=== PATIENT | male | born 1990 | race Caucasian/White ===

== ENCOUNTER 2018-06-26 10:46 | Emergency (ER) | payer MEDICAID ==
[~2018-06-26] VITALS: Ht 180.3 cm; Wt 90.9 kg
[2018-06-26] MEDS ORDERED: CLEO300C2 PO (11:57)
[2018-06-26] MEDS ORDERED: NORCOTAB PO (11:58)
[2018-06-26 12:06] VITALS: BP 142/76
== END 2018-06-26 12:09 | disposition home or self-care (01) ==
LOC: M ED 10:46
DX: K04.7 Periapical abscess without sinus (principal); F17.210 Nicotine dependence, cigarettes, uncomplicated

== ENCOUNTER 2018-06-28 17:04 | Emergency (ER) | payer MEDICAID ==
[~2018-06-28] VITALS: Ht 180.3 cm; Wt 91.0 kg
[~2018-06-28 17:04] MED LIST: CLEO300C2 PO; NORCOTAB PO
[2018-06-28 17:16] VITALS: BP 142/86
[2018-06-28] MEDS ORDERED: KETO10TAB PO (17:34)
[2018-06-28] MEDS ORDERED: LIDO1SOL7 PO (17:34)
== END 2018-06-28 17:50 | disposition home or self-care (01) ==
LOC: M ED 17:04
DX: S02.5XXA Fracture of tooth (traumatic), initial encounter for closed fracture (principal); K02.9 Dental caries, unspecified; X58.XXXA Exposure to other specified factors, initial encounter; Y92.89 Other specified places as the place of occurrence of the external cause; F17.210 Nicotine dependence, cigarettes, uncomplicated

== ENCOUNTER → 2018-12-27 | Outpatient (REF) | payer BC ==
[~2018-12-27] MED LIST changes: +HYDR-3715 PO; +KETO10TAB PO; +LIDO1SOL8 PO; -NORCOTAB PO
[2018-12-27 16:30] LABS: ALBUMIN 4.1 GM/DL (3.2-5.2); ALT/SGPT 32 U/L (12-78); BILIRUBIN,TOTAL 0.4 MG/DL (0.2-1.0); BLOOD UREA NITROGEN 15 MG/DL (7-18); CALCIUM LEVEL 9.4 MG/DL (8.5-10.1); CARBON DIOXIDE LEVEL 30 MEQ/L (21-32); CHLORIDE LEVEL 108 MEQ/L (98-107); CREATININE FOR GFR 1.17 MG/DL (0.70-1.30); GLOMERULAR FILTRATION RATE > 60.0 (>60); GLUCOSE, FASTING 89 MG/DL (70-100); POTASSIUM SERUM 4.6 MEQ/L (3.5-5.1); SODIUM LEVEL 143 MEQ/L (136-145); TOTAL PROTEIN 7.1 GM/DL (6.4-8.2)
[2018-12-27 16:49] LABS: HEMATOCRIT 44.1 % (42.0-52.0); HEMOGLOBIN 14.8 g/dl (13.5-17.5); MEAN CORPUSCULAR HEMOGLOBIN 30.1 pg (27.0-33.0); MEAN CORPUSCULAR HGB CONC 33.6 g/dl (32.0-36.5); MEAN CORPUSCULAR VOLUME 89.8 fl (80.0-96.0); PLATELET COUNT, AUTOMATED 218 10^3/uL (150-450); RED BLOOD COUNT 4.91 10^6/uL (4.30-6.10); WHITE BLOOD COUNT 7.4 10^3/uL (4.0-10.0)
== END ==
LOC: M SFHCPLAZ 15:14
PROVIDERS: ATTEND Nurse Practitioner Family
DX: F41.9 Anxiety disorder, unspecified (principal)

== ENCOUNTER 2019-02-15 04:15 | Emergency (ER) | payer BC ==
[~2019-02-15] VITALS: Ht 180.3 cm; Wt 88.6 kg
[2019-02-15 04:16] VITALS: BP 154/81
[2019-02-15] MEDS ORDERED: AUGM875T28 PO (04:50)
[2019-02-15] MEDS ORDERED: KETOROLAC 60 MG/2 ML VIAL (J1885) IM ONE (05:00)
[2019-02-15] MEDS ORDERED: AUGMENTIN 875 MG TAB PO ONE (05:00)
== END 2019-02-15 05:02 | disposition home or self-care (01) ==
LOC: M ED 04:15
DX: K04.7 Periapical abscess without sinus (principal); Z72.0 Tobacco use
CPT/HCPCS: 96372; 99283; J1885

== ENCOUNTER 2019-12-31 11:33 | Inpatient (IN) | payer BC, SELFPAY ==
[~2019-12-31] VITALS: Ht 180.3 cm; Wt 94.6 kg
[~2019-12-31 11:33] MED LIST changes: +AUGM875T28 PO; -LIDO1SOL8 PO; +LIDO2SOL17 PO
[2019-12-31 12:12] LABS: HEMATOCRIT 46.1 % (42.0-52.0); HEMOGLOBIN 15.9 g/dl (13.5-17.5); MEAN CORPUSCULAR HEMOGLOBIN 30.5 pg (27.0-33.0); MEAN CORPUSCULAR HGB CONC 34.5 g/dl (32.0-36.5); MEAN CORPUSCULAR VOLUME 88.5 fl (80.0-96.0); PLATELET COUNT, AUTOMATED 224 10^3/uL (150-450); RED BLOOD COUNT 5.21 10^6/uL (4.30-6.10)
[2019-12-31 12:57] LABS: ACETAMINOPHEN LEVEL < 2.0 UG/ML (10.0-30.0); ALBUMIN 4.1 GM/DL (3.2-5.2); ALT/SGPT 37 U/L (12-78); BILIRUBIN,DIRECT 0.2 MG/DL (0.0-0.2); BILIRUBIN,TOTAL 0.7 MG/DL (0.2-1.0); BLOOD UREA NITROGEN 10 MG/DL (7-18); CALCIUM LEVEL 9.3 MG/DL (8.5-10.1); CARBON DIOXIDE LEVEL 25 MEQ/L (21-32); CHLORIDE LEVEL 109 MEQ/L (98-107); CREATININE FOR GFR 1.03 MG/DL (0.70-1.30); ETHYL ALCOHOL (ETHANOL) < 0.003 % (0.000-0.010); GLOMERULAR FILTRATION RATE > 60.0 (>60); GLUCOSE, FASTING 96 MG/DL (70-100); POTASSIUM SERUM 3.8 MEQ/L (3.5-5.1); SALICYLATE LEVEL 2.1 MG/DL (5.0-30.0); SODIUM LEVEL 141 MEQ/L (136-145); THYROID STIMULATING HORMONE 0.765 uIU/ML (0.358-3.740); TOTAL PROTEIN 7.3 GM/DL (6.4-8.2)
[2019-12-31 14:43] LABS: AMPHETAMINES LEVEL URINE NEGATIVE (NEGATIVE); BARBITURATES URINE NEGATIVE (NEGATIVE); BENZODIAZEPINES URINE NEGATIVE (NEGATIVE); CANNABINOIDS URINE POSITIVE (NEGATIVE); COCAINE METABOLITE URINE NEGATIVE (NEGATIVE); METHADONE URINE NEGATIVE (NEGATIVE); OPIATES URINE NEGATIVE (NEGATIVE); PHENCYCLIDINE URINE NEGATIVE (NEGATIVE)
[2019-12-31] MEDS ORDERED: NICOTINE 21MG/24HR 1 EA TRANSDERMAL TD ONE (16:15)
[2019-12-31] MEDS ORDERED: CALCIUM CARBONATE 500 MG CHEW U/D PO STA (17:57)
[2019-12-31] MEDS ORDERED: MOM 30ML SUSPENSION UDC PO PRN (19:15)
[2019-12-31] MEDS ORDERED: MAALOX 30 ML SUSP *UDC PO PRN (19:15)
[2019-12-31] MEDS ORDERED: ACETAMINOPHEN TAB 650MG DOSE (2X325MG) PO PRN (19:15)
[2019-12-31] MEDS ORDERED: traZODone 50 MG TAB PO PRN (19:15)
[2020-01-01 02:27] VITALS: BP 147/91
--- NOTE | 2020-01-01 09:28 | MHHPEPDOC ---
[facility] History & Physical History and Physical DATE OF ADMISSION: Dec 31, 2019 at 19:03 HPI: Victoriano presents today for concerns regarding his suicidal ideation. He explains that about a year ago he was put on Effexor and he did not react well to it. This caused his suicidal ideation to turn into actions. Victoriano has been going downhill since then. He also does not see the point of working for 26 days just to see someone he loves for 4 days. Victoriano also admits to being fired at the beginning of October after getting a drug test and failing because of smoking marijuana. He has been in contact with his ex-girlfriend. Victoriano admits that she is not supportive of him. Victoriano admits to having many people in his life not be there for him and not supporting him when they said they would. He admits to his ex- and family encouraging him to go to a mental hospital. He admits to not liking hospitals in general. Victoriano denies hearing voices telling him what to do, he does hear voices calling his name sometimes. MEDICATIONS: Victoriano was also prescribed anti-anxiety medication, and he did not react well to them. His primary care provider then suggested he go seek behavioral health help. Objective Appearance: Well nourished. Well groomed. Behavior: Engaged. Cooperative with good eye contact. Pleasant. Mood: Dysthymic. Generally good. Appropriately reactive. Thought Content: No thoughts of self harm. No evidence of aggressive or homicidal ideation. Reports suicidal thoughts. No evidence of delusions. Judgement: intact as evidenced by decision making in the recent past. Insight: good insight into symptoms and treatment options. 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 The risks, benefits as well as common side effects as well as alternative treatments (including non-treatment) were discussed with the patient both in general and for their particular case. The patient selected this option out of a range. His treatment priorities are 1. Risk for suicide 2. Ineffective coping, and 3. Substance use. Estimated length of stay is anywhere between 3-5 days. Vital Signs Vital Signs Date Time Temp Pulse Resp B/P (MAP) Pulse Ox O2 Delivery O2 Flow Rate FiO2 7/13/20 02:27 98.7 70 18 147/91 (109) 97 Room Air Laboratory Data 24H Labs Laboratory Tests 2 12/31/19 11:49: Nucleated Red Blood Cells % (auto) 0.0, Anion Gap 7L, Glomerular Filtration Rate > 60.0, Calcium Level 9.3, Total Bilirubin 0.7, Direct Bilirubin 0.2, Aspartate Amino Transf (AST/SGOT) 42H, Alanine Aminotransferase (ALT/SGPT) 37, Alkaline Phosphatase 81, Total Protein 7.3, Albumin 4.1, Albumin/Globulin Ratio 1.3, Thyroid Stimulating Hormone (TSH) 0.765, Salicylates Level 2.1L, Urine Opiates Screen NEGATIVE, Urine Methadone Screen NEGATIVE, Acetaminophen Level < 2.0L, Urine Barbiturates Screen NEGATIVE, Urine Phencyclidine Screen NEGATIVE, Urine Amphetamines Screen NEGATIVE, Urine Benzodiazepines Screen NEGATIVE, Urine Cocaine Metabolite Screen NEGATIVE, Urine Cannabinoids Screen POSITIVEH, Ethyl Alcohol Level < 0.003 CBC/BMP Laboratory Tests 12/31/19 11:49 Medications No Active Prescriptions or Reported Meds Allergies Coded Allergies: No Known Allergies (Unverified , 06/28/18) TOMAS SEPULVEDA DO Jan 01, 2020 09:28
[2020-01-01] MEDS ORDERED: LORazepam 2 MG TAB PO PRN (10:30)
[2020-01-01] MEDS: FOLIC ACID 1 MG TAB PO SCH (10:46)
[2020-01-01] MEDS: NICOTINE 21MG/24HR 1 EA TRANSDERMAL TD PRN (10:46)
[2020-01-01] MEDS: MULTIVITAMINS/MINERALS THERAP 1 TAB PO SCH (10:46)
[2020-01-01] MEDS: THIAMINE 100 MG TAB PO SCH ×2 (10:46→20:15)
[2020-01-01 10:54] VITALS: BP 150/80
[2020-01-01] MEDS ORDERED: SERTRALINE HCL 25 MG TABLET PO ONE (11:00)
[2020-01-01 15:59] VITALS: BP 167/72
--- NOTE | 2020-01-01 18:54 | HPEPDOC ---
General Date of Admission Dec 31, 2019 at 19:03 Date of Service: Jan 01, 2020 Chief Complaint The patient is a 29-year-old male admitted with a reason for visit of Unspecified Depressive Disorder. Source: Patient Exam Limitations: No limitations Timing/Duration: Day(s) Severity: Moderate History of Present Illness Patient is 29 years old male with past history of hypertension, depression presented hospital with suicidal ideation. Patient stated that he has been diagnosed with hypertension however he didn't take any medications. During my interview patient denied fever, chills, nausea, chest pain, palpitations vomiting, diarrhea or dysuria Home Medications No Active Prescriptions or Reported Meds Allergies Coded Allergies: No Known Allergies (Unverified , 06/28/18) Past Medical History Medical History Hypertension, depression Family History Father has obesity, heart attack, coronary artery diseases Mom has hypertension Social History * Smoker: current smoker, greater than 1 pack/day Drugs: cocaine, other (amphetamines, opioids) A-FIB/CHADSVASC A-FIB History Current/History of A-Fib/PAF?: No Current PO Anticoag Therapy: No Review of Systems Constitutional: Denies: Chills, Fever Eyes: Denies: Pain ENT: Denies: Head Aches Skin: Denies: Rash, Lesions Pulmonary: Denies: Dyspnea Cardiovascular: Denies: Chest Pain Gastrointestinal: Denies: Nausea, Vomiting Genitourinary: Denies: Dysuria Hematologic: Denies: Bruising, Bleeding Excessively Musculoskeletal: Denies: Neck Pain Neurological: Denies: Weakness, Numbness Psych: Reports: Depression Physical Examination General Exam: Positive: Alert, Cooperative Eye Exam: Positive: PERRLA ENT Exam: Positive: Atraumatic Neck Exam: Positive: Supple; Negative: JVD Chest Exam: Positive: Clear to auscultation Heart Exam: Positive: Rate Normal Telemetry: Positive: No significant arrhythmia Abdomen Exam: Positive: Normal bowel sounds Extremity Exam: Negative: Clubbing, Cyanosis Skin Exam: Positive: Nl turgor and temperature Neuro Exam: Positive: Strength at 5/5 X4 ext, Cranial Nerves 3-12 NL Psych Exam: Positive: Oriented x 3 Vital Signs Vital Signs Date Time Temp Pulse Resp B/P (MAP) Pulse Ox O2 Delivery O2 Flow Rate FiO2 01/01/20 15:59 98.9 68 16 167/72 (103) 7/13/20 02:27 97 Room Air Assessment/Plan Patient is 29 years old male with past history of hypertension, depression presented hospital with suicidal ideation. Patient stated that he has been diagnosed with hypertension however he didn't take any medications. During my interview patient denied fever, chills, nausea, chest pain, palpitations vomiting, diarrhea or dysuria Problems (1) Suicidal ideation Status: Acute Problem Text: We'll defer treatment to psych team (2) Hypertension Status: Chronic Problem Text: Lisinopril 15 mg daily Follow-up with PCP for outpatient workup Plan / VTE VTE Prophylaxis Ordered?: No VTE Exclusion Mechanical Proph: Low Risk for VTE PEDRO MARSHALL DO Jan 01, 2020 18:54
[2020-01-01] MEDS ORDERED: lisinopriL 5 MG TAB PO ONE (19:00)
[2020-01-02 06:04] VITALS: BP 148/77
--- NOTE | 2020-01-02 08:23 | MHIPNPDOC ---
[facility] Progress Note Progress Note DATE OF SERVICE: 01/02/20 HPI: Jose presents today for a follow-up visit. He states his medication made him feel spaced out with a lack in concentration. He reports Trazadone was unable to help him sleep at night. He reports the food served is similar to half-way food. Victoriano states he thinks about suicidal tendencies but knows he has to work on getting better. MEDICATIONS: Victoriano mentions he used to take Melatonin gummies along with Seroquel while in half-way. MEDICAL HISTORY: Victoriano denies a history of seizures or throwing up on purpose. Objective Appearance: Fair hygiene. Somewhat tired. Affect: Dysthymic. Constricted. Reports some continuing suicidal ideation. Speech: Normal rate. Normal volume. Perception: No perceptual abnormalities noted. Judgement: Fair. Insight: Fair. Assessment F33.2 Major depressive disorder, recurrent severe without psychotic features Plan Discontinue Sertraline and start Wellbutrin 150 mg inaudible and release daily. Change Trazadone to Hydroxyzine as needed for sleep, 50 mg. The risks, benefits as well as common side effects as well as alternative treatments (including non-treatment) were discussed with the patient both in general and for their particular case. The patient selected this option out of a range. Continue to treat, convert to voluntary today Vital Signs Vital Signs Date Time Temp Pulse Resp B/P (MAP) Pulse Ox O2 Delivery O2 Flow Rate FiO2 01/02/20 06:04 97.4 54 16 148/77 (100) 99 Room Air Current Medications Current Medications Medications (Trade) Dose Ordered Sig/David Route PRN Reason Start Time Stop Time Status Last Admin Dose Admin Acetaminophen (Tylenol Tab) 650 mg Q6HP PRN PO HEADACHE or DISCOMFORT 12/31/19 19:15 Al Hydrox/Mg Hydrox/Simethicone (Mylanta) 30 ml Q4HP PRN PO HEARTBURN/INDIGESTION 12/31/19 19:15 Calcium Carbonate (Tums) 500 mg STAT STAT PO 12/31/19 17:57 12/31/19 17:58 DC 12/31/19 18:01 Folic Acid (Folic Acid) 1 mg DAILY PO 01/01/20 09:00 01/01/20 10:46 Home Med (Med Rec Complete!) ASDIRECTED XX 7/12/20 17:00 12/31/19 16:51 DC Lisinopril (Prinivil) 15 mg DAILY PO 01/02/20 09:00 Lorazepam (Ativan) 2 mg ASDIRECTED PRN PO SEE PROTOCOL 01/01/20 10:30 Magnesium Hydroxide (Milk Of Magnesia) 30 ml DAILYPRN PRN PO CONSTIPATION 12/31/19 19:15 Multivitamins (Theragram-M) 1 tab DAILY PO 01/01/20 09:00 01/01/20 10:46 Nicotine (Nicoderm Cq 21mg) 1 patch DAILYPRN PRN TD NICOTINE WITHDRAWAL 01/01/20 02:30 01/01/20 10:46 Sertraline HCl (Zoloft) 25 mg DAILY PO 01/02/20 09:00 Thiamine HCl (Thiamine HCl) 100 mg BID PO 01/01/20 09:00 01/03/20 21:01 01/01/20 20:15 Trazodone HCl (Desyrel) 50 mg QHSP PRN PO INSOMNIA 12/31/19 19:15 01/01/20 20:33 Allergies Coded Allergies: No Known Allergies (Unverified , 06/28/18) TOMAS SEPULVEDA DO Jan 02, 2020 08:23
[2020-01-02] MEDS: THIAMINE 100 MG TAB PO SCH ×2 (08:54→22:03)
[2020-01-02] MEDS: lisinopriL 5 MG TAB PO SCH (08:54)
[2020-01-02] MEDS: MULTIVITAMINS/MINERALS THERAP 1 TAB PO SCH (08:54)
[2020-01-02] MEDS: FOLIC ACID 1 MG TAB PO SCH (08:55)
[2020-01-02] MEDS ORDERED: SERTRALINE HCL 25 MG TABLET PO SCH (09:00)
[2020-01-02] MEDS ORDERED: buPROPion **XL** TABLET 150MG (WELLBUTRIN XL) PO ONE (09:15)
[2020-01-02 09:41] VITALS: BP 158/70
[2020-01-02] MEDS: NICOTINE 21MG/24HR 1 EA TRANSDERMAL TD PRN (12:54)
[2020-01-02 17:38] VITALS: BP 124/86
[2020-01-02 17:45] VITALS: BP 136/68
[2020-01-02 21:00] VITALS: BP 136/68
[2020-01-02] MEDS: hydrOXYzine 50 MG TAB PO PRN (22:55)
[2020-01-03 05:59] VITALS: BP 141/65
[2020-01-03] MEDS ORDERED: buPROPion **XL** TABLET 150MG (WELLBUTRIN XL) PO SCH (09:00)
[2020-01-03] MEDS: lisinopriL 5 MG TAB PO SCH (09:48)
[2020-01-03] MEDS: FOLIC ACID 1 MG TAB PO SCH (09:48)
[2020-01-03] MEDS: MULTIVITAMINS/MINERALS THERAP 1 TAB PO SCH (09:48)
[2020-01-03] MEDS: NICOTINE 21MG/24HR 1 EA TRANSDERMAL TD PRN (10:28)
--- NOTE | 2020-01-03 10:30 | MHIPNPDOC ---
[facility] Progress Note Progress Note DATE OF SERVICE: 01/03/20 Jose presents today for a follow-up visit. He reports he doesnt feel any positive or negative effects because of the medications aside from sweating due to the vitamin B. Victoriano states he still has suicidal thoughts but reports he won't act on them. He notes he is happy to be here and isnt anxious about getting discharged. Victoriano mentions he is enjoying the order and structure of the facility. Objective Appearance: Fair hygiene. Affect: Dysthemic. Thought Form: Linear and goal directed. Thought Content: No thoughts of self harm. No evidence of aggressive or homicidal ideation. No evidence of delusions. No evidence of suicidal ideation. Insight: Constricted to fair insight. Assessment F33.2 Major depressive disorder, recurrent severe without psychotic features Plan Increase Wellbutrin to 300 mg daily. Discontinue Folic acid as gives patient sweats. Will convert to voluntary. Vital Signs Vital Signs Date Time Temp Pulse Resp B/P (MAP) Pulse Ox O2 Delivery O2 Flow Rate FiO2 01/03/20 09:48 143/87 01/03/20 05:59 98.0 99 16 98 Room Air Current Medications Current Medications Medications (Trade) Dose Ordered Sig/David Route PRN Reason Start Time Stop Time Status Last Admin Dose Admin Acetaminophen (Tylenol Tab) 650 mg Q6HP PRN PO HEADACHE or DISCOMFORT 12/31/19 19:15 Al Hydrox/Mg Hydrox/Simethicone (Mylanta) 30 ml Q4HP PRN PO HEARTBURN/INDIGESTION 12/31/19 19:15 Bupropion HCl (Wellbutrin Xl) 150 mg QAM PO 01/03/20 09:00 01/03/20 09:48 Calcium Carbonate (Tums) 500 mg STAT STAT PO 12/31/19 17:57 12/31/19 17:58 DC 12/31/19 18:01 Folic Acid (Folic Acid) 1 mg DAILY PO 01/01/20 09:00 01/03/20 09:48 Home Med (Med Rec Complete!) ASDIRECTED XX 12/31/19 17:00 12/31/19 16:51 DC Hydroxyzine HCl (Atarax) 50 mg QHS PRN PO sleep 01/02/20 09:15 01/02/20 22:55 Lisinopril (Prinivil) 15 mg DAILY PO 01/02/20 09:00 01/03/20 09:48 Lorazepam (Ativan) 2 mg ASDIRECTED PRN PO SEE PROTOCOL 01/01/20 10:30 Cancel Magnesium Hydroxide (Milk Of Magnesia) 30 ml DAILYPRN PRN PO CONSTIPATION 12/31/19 19:15 Multivitamins (Theragram-M) 1 tab DAILY PO 01/01/20 09:00 01/03/20 09:48 Nicotine (Nicoderm Cq 21mg) 1 patch DAILYPRN PRN TD NICOTINE WITHDRAWAL 01/01/20 02:30 01/03/20 10:28 Sertraline HCl (Zoloft) 25 mg DAILY PO 01/02/20 09:00 01/02/20 09:16 DC 01/02/20 08:54 Thiamine HCl (Thiamine HCl) 100 mg BID PO 01/01/20 09:00 01/03/20 04:07 DC 01/02/20 22:03 Trazodone HCl (Desyrel) 50 mg QHSP PRN PO INSOMNIA 12/31/19 19:15 01/02/20 09:16 DC 01/01/20 20:33 Allergies Coded Allergies: No Known Allergies (Unverified , 06/28/18) TOMAS SEPULVEDA DO Jan 03, 2020 10:30
[2020-01-03 17:28] VITALS: BP 141/78
[2020-01-03] MEDS: hydrOXYzine 50 MG TAB PO PRN (22:56)
[2020-01-04 07:00] VITALS: BP 153/68
--- NOTE | 2020-01-04 08:26 | MHIPNPDOC ---
[facility] Progress Note Progress Note DATE OF SERVICE: 01/04/20 Jose presents today for concerns regarding depressionIssa reports that the increase in medication has left him feeling groggy. Changing medication to Ambien will reduce grogginess. MEDICATIONS: He took Hydroxyzine last night at 11 pm. Objective Appearance: Hygiene is fair. Behavior: More linear and logical, but still dysthymic and constricted. Speech: Spontaneous and fluid. Cognition: Grossly intact. Insight: Good insight. Assessment F32.2 Major depressive disorder, single episode, severe without psychotic features F10.929 Alcohol use, unspecified with intoxication, unspecified Plan Continue offering Wellbutrin 300 mg daily of extended release. Change Hydroxyzine to Ambien because Hydroxyzine had over sedated the patient. Continue to monitor behavior and response to medication. Vital Signs Vital Signs Date Time Temp Pulse Resp B/P (MAP) Pulse Ox O2 Delivery O2 Flow Rate FiO2 01/04/20 07:00 97.8 52 12 153/68 (96) 98 Room Air Current Medications Current Medications Medications (Trade) Dose Ordered Sig/David Route PRN Reason Start Time Stop Time Status Last Admin Dose Admin Acetaminophen (Tylenol Tab) 650 mg Q6HP PRN PO HEADACHE or DISCOMFORT 12/31/19 19:15 Al Hydrox/Mg Hydrox/Simethicone (Mylanta) 30 ml Q4HP PRN PO HEARTBURN/INDIGESTION 12/31/19 19:15 Bupropion HCl (Wellbutrin Xl) 150 mg QAM PO 01/03/20 09:00 01/03/20 11:48 DC 01/03/20 09:48 Bupropion HCl (Wellbutrin Xl) 300 mg QAM PO 01/04/20 09:00 Calcium Carbonate (Tums) 500 mg STAT STAT PO 12/31/19 17:57 12/31/19 17:58 DC 12/31/19 18:01 Folic Acid (Folic Acid) 1 mg DAILY PO 01/01/20 09:00 01/03/20 11:48 DC 01/03/20 09:48 Home Med (Med Rec Complete!) ASDIRECTED XX 12/31/19 17:00 12/31/19 16:51 DC Hydroxyzine HCl (Atarax) 50 mg QHS PRN PO sleep 01/02/20 09:15 7/15/20 22:56 Lisinopril (Prinivil) 15 mg DAILY PO 01/02/20 09:00 01/03/20 09:48 Lorazepam (Ativan) 2 mg ASDIRECTED PRN PO SEE PROTOCOL 01/01/20 10:30 Cancel Magnesium Hydroxide (Milk Of Magnesia) 30 ml DAILYPRN PRN PO CONSTIPATION 12/31/19 19:15 Multivitamins (Theragram-M) 1 tab DAILY PO 01/01/20 09:00 01/03/20 09:48 Nicotine (Nicoderm Cq 21mg) 1 patch DAILYPRN PRN TD NICOTINE WITHDRAWAL 01/01/20 02:30 01/03/20 10:28 Sertraline HCl (Zoloft) 25 mg DAILY PO 01/02/20 09:00 01/02/20 09:16 DC 01/02/20 08:54 Thiamine HCl (Thiamine HCl) 100 mg BID PO 01/01/20 09:00 01/03/20 04:07 DC 01/02/20 22:03 Trazodone HCl (Desyrel) 50 mg QHSP PRN PO INSOMNIA 12/31/19 19:15 01/02/20 09:16 DC 01/01/20 20:33 Allergies Coded Allergies: No Known Allergies (Unverified , 06/28/18) TOMAS SEPULVEDA DO Jan 04, 2020 08:26
[2020-01-04] MEDS: buPROPion **XL** TABLET 150MG (WELLBUTRIN XL) PO SCH (09:02)
[2020-01-04] MEDS: MULTIVITAMINS/MINERALS THERAP 1 TAB PO SCH (09:02)
[2020-01-04] MEDS: lisinopriL 5 MG TAB PO SCH (09:02)
[2020-01-04] MEDS: NICOTINE 21MG/24HR 1 EA TRANSDERMAL TD PRN (11:11)
[2020-01-04] MEDS ORDERED: PILL CUTTER 1 EACH XX PRN (11:15)
[2020-01-04 18:33] VITALS: BP 163/83
[2020-01-04] MEDS: zolPIDEM TARTRATE 5 MG TAB PO PRN (23:00)
[2020-01-05 06:39] VITALS: BP 129/84
--- NOTE | 2020-01-05 07:29 | MHIPNPDOC ---
[facility] Progress Note Progress Note DATE OF SERVICE: 01/05/20 Subjective HPI: Jose presents today for a follow up. He felt angry when he heard someone speaking about a superior race and fascist ideas. MEDICATIONS: He recently increased his Wellbutrin dosage and is also taking Ambien. Objective Mood: Reports feeling upset about psychotic patients fascist ideas preached in the cafeteria today. Speech: Spontaneous and Fluid. Normal volume. Normal rate. Thought Form: Linear and goal directed. Thought Content: No evidence of aggressive or homicidal ideation. No evidence of delusions. No thoughts of self harm. No evidence of suicidal ideation. Judgement: Intact as evidenced by decision making in the recent past. Insight: Good insight into symptoms and treatment options. Assessment F33.2 Major depressive disorder, recurrent severe without psychotic features Plan Continue Wellbutrin 300 mg daily and increase Ambien to 5 mg nightly. Vital Signs Vital Signs Date Time Temp Pulse Resp B/P (MAP) Pulse Ox O2 Delivery O2 Flow Rate FiO2 01/05/20 06:39 97.3 76 12 129/84 (99) Room Air 01/04/20 07:00 98 Current Medications Current Medications Medications (Trade) Dose Ordered Sig/David Route PRN Reason Start Time Stop Time Status Last Admin Dose Admin Acetaminophen (Tylenol Tab) 650 mg Q6HP PRN PO HEADACHE or DISCOMFORT 12/31/19 19:15 Al Hydrox/Mg Hydrox/Simethicone (Mylanta) 30 ml Q4HP PRN PO HEARTBURN/INDIGESTION 12/31/19 19:15 Bupropion HCl (Wellbutrin Xl) 150 mg QAM PO 01/03/20 09:00 01/03/20 11:48 DC 01/03/20 09:48 Bupropion HCl (Wellbutrin Xl) 300 mg QAM PO 01/04/20 09:00 01/04/20 09:02 Calcium Carbonate (Tums) 500 mg STAT STAT PO 12/31/19 17:57 12/31/19 17:58 DC 12/31/19 18:01 Folic Acid (Folic Acid) 1 mg DAILY PO 01/01/20 09:00 01/03/20 11:48 DC 01/03/20 09:48 Home Med (Med Rec Complete!) ASDIRECTED XX 12/31/19 17:00 12/31/19 16:51 DC Hydroxyzine HCl (Atarax) 50 mg QHS PRN PO sleep 01/02/20 09:15 01/04/20 11:07 DC 01/03/20 22:56 Lisinopril (Prinivil) 15 mg DAILY PO 01/02/20 09:00 01/04/20 09:02 Lorazepam (Ativan) 2 mg ASDIRECTED PRN PO SEE PROTOCOL 01/01/20 10:30 Cancel Magnesium Hydroxide (Milk Of Magnesia) 30 ml DAILYPRN PRN PO CONSTIPATION 12/31/19 19:15 Multivitamins (Theragram-M) 1 tab DAILY PO 01/01/20 09:00 01/04/20 09:02 Nicotine (Nicoderm Cq 21mg) 1 patch DAILYPRN PRN TD NICOTINE WITHDRAWAL 01/01/20 02:30 01/04/20 11:11 Sertraline HCl (Zoloft) 25 mg DAILY PO 01/02/20 09:00 01/02/20 09:16 DC 01/02/20 08:54 Thiamine HCl (Thiamine HCl) 100 mg BID PO 01/01/20 09:00 01/03/20 04:07 DC 01/02/20 22:03 Trazodone HCl (Desyrel) 50 mg QHSP PRN PO INSOMNIA 12/31/19 19:15 01/02/20 09:16 DC 01/01/20 20:33 Zolpidem Tartrate (Ambien) 2.5 mg QHSP PRN PO sleep 01/04/20 11:15 01/04/20 23:00 Allergies Coded Allergies: No Known Allergies (Unverified , 06/28/18) TOMAS SEPULVEDA DO Jan 05, 2020 07:29
[2020-01-05] MEDS: MULTIVITAMINS/MINERALS THERAP 1 TAB PO SCH (08:17)
[2020-01-05] MEDS: lisinopriL 5 MG TAB PO SCH (08:17)
[2020-01-05] MEDS: buPROPion **XL** TABLET 150MG (WELLBUTRIN XL) PO SCH (08:18)
[2020-01-05] MEDS: NICOTINE 21MG/24HR 1 EA TRANSDERMAL TD PRN (08:19)
[2020-01-05 18:15] VITALS: BP 139/87
[2020-01-05] MEDS: zolPIDEM TARTRATE 5 MG TAB PO PRN (23:40)
[2020-01-06 06:03] VITALS: BP 145/93
[2020-01-06] MEDS: MULTIVITAMINS/MINERALS THERAP 1 TAB PO SCH (08:02)
[2020-01-06] MEDS: lisinopriL 5 MG TAB PO SCH (08:02)
[2020-01-06] MEDS: buPROPion **XL** TABLET 150MG (WELLBUTRIN XL) PO SCH (08:03)
[2020-01-06] MEDS: NICOTINE 21MG/24HR 1 EA TRANSDERMAL TD PRN (10:42)
[2020-01-06] MEDS ORDERED: OLANZapine ORAL DISINTEGRATING TAB 5MG PO PRN (14:00)
[2020-01-06 16:05] VITALS: BP 148/80
[2020-01-06] MEDS: zolPIDEM TARTRATE 5 MG TAB PO PRN (23:57)
[2020-01-07 06:26] VITALS: BP 148/77
[2020-01-07] MEDS: lisinopriL 5 MG TAB PO SCH (08:14)
[2020-01-07] MEDS: MULTIVITAMINS/MINERALS THERAP 1 TAB PO SCH (08:15)
[2020-01-07] MEDS: buPROPion **XL** TABLET 150MG (WELLBUTRIN XL) PO SCH (08:15)
[2020-01-07] MEDS: NICOTINE 21MG/24HR 1 EA TRANSDERMAL TD PRN (08:16)
--- NOTE | 2020-01-07 16:13 | MHIPNPDOC ---
[facility] Progress Note Progress Note DATE OF SERVICE: 01/07/20 HISTORY: As per previous reports: " Victoriano presents today for concerns regarding his suicidal ideation. He explains that about a year ago he was put on Effexor and he did not react well to it. This caused his suicidal ideation to turn into actions. Victoriano has been going downhill since then. He also does not see the point of working for 26 days just to see someone he loves for 4 days. Victoriano also admits to being fired at the beginning of October after getting a drug test and failing because of smoking marijuana. He has been in contact with his ex-girlfriend. Victoriano admits that she is not supportive of him. Victoriano admits to having many people in his life not be there for him and not supporting him when they said they would. He admits to his ex- and family encouraging him to go to a mental hospital. He admits to not liking hospitals in general. Victoriano denies hearing voices telling him what to do, he does hear voices calling his name sometimes. VITAL SIGNS: See below. NEW TEST RESULTS: See below CURRENT MEDICATIONS: See below. MENTAL STATUS EXAMINATION: Patient is a 29-year old male, who is alert, cooperative, dressed in hospital clothes, with good eye contact. Speech: Is normal in r/t/v. Language skills are intact Thought processes including: linear and coherent. Thought content: goal orientated, positive, denies SI/HI. Abstract reasoning, and computation: good. Description of associations: intact, not loose. Description of abnormal or psychotic thoughts: he denies psychotic delusions, denies TAV hallucinations, denies SI/HI. Judgment: good Insight: good. Orientation: x 3. Recent and remote memory: intact. Attention span and concentration: very good, not easily distracted. Language: adequate. Fund of knowledge: average Mood: anxious. Affect: congruent with mood. DIAGNOSES: F32.2 Major depressive disorder, single episode, severe without psychotic features F10.929 Alcohol use, unspecified with intoxication, unspecified ASSESSMENT:The patient is anxious, he tells me this is because he will be leaving [place] and going to his mother's house in [facility] where he won't feel as comfortable as he would living on his own but on the other hand he has geat support in that area, his family is there. He says he has been drinking coffee, so, that has something to do with his anxiety. He says he doesn't want to leave today, he would prefer to leave tomorrow because he already had planned this with his discharge Planners. I offered to discharge him today but he didn't seem comfortable with the idea, he will be discharged tomorrow. MANAGEMENT PLAN: Continue as per Dr. Mercado TIME SPENT: 20 minutes. Vital Signs Vital Signs Date Time Temp Pulse Resp B/P (MAP) Pulse Ox O2 Delivery O2 Flow Rate FiO2 01/07/20 08:14 143/72 01/07/20 06:26 98.6 60 16 99 Room Air Current Medications Current Medications Medications (Trade) Dose Ordered Sig/David Route PRN Reason Start Time Stop Time Status Last Admin Dose Admin Acetaminophen (Tylenol Tab) 650 mg Q6HP PRN PO HEADACHE or DISCOMFORT 12/31/19 19:15 Al Hydrox/Mg Hydrox/Simethicone (Mylanta) 30 ml Q4HP PRN PO HEARTBURN/INDIGESTION 12/31/19 19:15 Bupropion HCl (Wellbutrin Xl) 150 mg QAM PO 01/03/20 09:00 01/03/20 11:48 DC 01/03/20 09:48 Bupropion HCl (Wellbutrin Xl) 300 mg QAM PO 01/04/20 09:00 01/07/20 08:15 Calcium Carbonate (Tums) 500 mg STAT STAT PO 12/31/19 17:57 12/31/19 17:58 DC 12/31/19 18:01 Folic Acid (Folic Acid) 1 mg DAILY PO 01/01/20 09:00 01/03/20 11:48 DC 01/03/20 09:48 Home Med (Med Rec Complete!) ASDIRECTED XX 12/31/19 17:00 12/31/19 16:51 DC Hydroxyzine HCl (Atarax) 50 mg QHS PRN PO sleep 01/02/20 09:15 01/04/20 11:07 DC 01/03/20 22:56 Lisinopril (Prinivil) 15 mg DAILY PO 01/02/20 09:00 01/07/20 08:14 Lorazepam (Ativan) 2 mg ASDIRECTED PRN PO SEE PROTOCOL 01/01/20 10:30 Cancel Magnesium Hydroxide (Milk Of Magnesia) 30 ml DAILYPRN PRN PO CONSTIPATION 12/31/19 19:15 Multivitamins (Theragram-M) 1 tab DAILY PO 01/01/20 09:00 01/07/20 08:15 Nicotine (Nicoderm Cq 21mg) 1 patch DAILYPRN PRN TD NICOTINE WITHDRAWAL 01/01/20 02:30 01/07/20 08:16 Olanzapine (ZyPREXA ZYDIS) 5 mg Q4HP PRN PO ANXIETY/AGITATION 01/06/20 14:00 01/06/20 14:24 Sertraline HCl (Zoloft) 25 mg DAILY PO 01/02/20 09:00 01/02/20 09:16 DC 01/02/20 08:54 Thiamine HCl (Thiamine HCl) 100 mg BID PO 01/01/20 09:00 01/03/20 04:07 DC 01/02/20 22:03 Trazodone HCl (Desyrel) 50 mg QHSP PRN PO INSOMNIA 12/31/19 19:15 01/02/20 09:16 DC 01/01/20 20:33 Zolpidem Tartrate (Ambien) 2.5 mg QHSP PRN PO sleep 01/04/20 11:15 01/06/20 14:04 DC 01/05/20 23:40 Zolpidem Tartrate (Ambien) 10 mg QHSP PRN PO insomnia 01/06/20 14:00 01/06/20 23:57 Allergies Coded Allergies: No Known Allergies (Unverified , 06/28/18) PEMA OSMAN MD Jan 07, 2020 16:12
[2020-01-07 16:30] VITALS: BP 143/72
[2020-01-07] MEDS: zolPIDEM TARTRATE 5 MG TAB PO PRN (22:28)
[2020-01-08 06:02] VITALS: BP 130/68
--- NOTE | 2020-01-08 07:49 | MHDSPDOC ---
[facility] Discharge Summary Discharge Summary DATE OF ADMISSION: Dec 31, 2019 at 19:03 DATE OF DISCHARGE:01/08/20 DISCHARGE DIAGNOSES: F33.2 Major depressive disorder, recurrent severe without psychotic features CONSULTANTS INVOLVED:[ None (basic hospitalist screening)] REASON FOR ADMISSION: &TREATMENT AND PROGRESS ON THE UNIT : Victoriano presented to the ER for self admission to unit due to depression. He came on his own volition due to suicidal thoughts. In addition, he had low mood and distress on presentation. Victoriano became euthymic, engaged, and attended while on the unit as he started medicines. He is making excellent progress and worked back into a normal mental status examination. MEDICATIONS: Eddie medication increased to 300 mg of Wellbutrin resulting positive effects. For sleep, his Ambien increased to 10 mg nightly, also resulting in positive effects. DISCHARGE ASSESSMENT:[improved] Legal status considerations: The patient at the time of discharge did not meet criteria for involuntary admission/extension due to having a [normal] mental status exam, [fair] insight into the situation, They are engaged in the discharge process, as well as being friendly and amenable in behavioral control and havent been engaging in any observed concerning behavior or ideation recently. They decline voluntary extension/admission at this time and must be discharged in good nette, as Im unable to make a case for holding the patient against their will. They may have historical risk factors of admissions and other interactions with psychiatry however, those are not modifiable from a clinical perspective. The patient will need to be discharged in good nette. MENTAL STATUS EXAMINATION ON DISCHARGE: [General: Well dressed with good hygiene Speech: Spontaneous and fluid Thought processes: Linear and logical Thought content: Future orientated Abstract reasoning, and computation: Intact Description of associations: Intact Description of abnormal or psychotic thoughts:Denies any suicidal or homicidal ideation. Denies any auditory or visual hallucinations. Does not appear to be responding to internal stimuli. Does not appear to be endorsing any bizarre or paranoid ideation. Judgment: fair Insight: fair Orientation: Alert and orientated 3 Recent and remote memory: Intact Attention span and concentration: Intact Fund of knowledge: Adequate Mood: "okay" Affect: Euthymic with a full range] PLAN/FOLLOWUP ARRANGEMENTS: Follow up appointments made (PCP and MH in 5 days of D/C date) and safety plan completed. Safety Planning aspects completed prior to discharge [Medication supplies limited to 7 days with 4 refills to prevent accumulation to OD] [RN reviewed crisis hotline information and other aspects to empower patient to access care in interim before next appointment.] The amount of time spent in the coordination of care for this patient was approximately 30 minutes. Vital Signs/I&Os Vital Signs Date Time Temp Pulse Resp B/P (MAP) Pulse Ox O2 Delivery O2 Flow Rate FiO2 01/08/20 06:02 97.2 89 16 130/68 (88) 99 Room Air Medications Scheduled Bupropion Hcl (Bupropion Xl) 150 Mg Tab.er.24h, 300 MG PO QAM for mood for 7 Days, #14 Lisinopril (Lisinopril) 5 Mg Tablet, 15 MG PO DAILY for htn for 7 Days, #21 Scheduled PRN Nicotine (Nicotine Patch) 21 Mg Patch.td24, 1 PATCH TD DAILYPRN PRN for NICOTINE WITHDRAWAL for 30 Days, #30 Zolpidem Tartrate (Ambien) 5 Mg Tablet, 10 MG PO QHSP PRN for insomnia for 14 Days, #28 Allergies Coded Allergies: No Known Allergies (Unverified , 06/28/18) TOMAS SEPULVEDA DO Jan 08, 2020 07:49
[2020-01-08] MEDS: MULTIVITAMINS/MINERALS THERAP 1 TAB PO SCH (08:21)
[2020-01-08] MEDS: buPROPion **XL** TABLET 150MG (WELLBUTRIN XL) PO SCH (08:21)
[2020-01-08 08:24] VITALS: BP 143/87
[2020-01-08] MEDS: lisinopriL 5 MG TAB PO SCH (08:24)
[2020-01-08] MEDS ORDERED: BUPR150T3 PO ×2 (08:35→12:43)
[2020-01-08] MEDS ORDERED: LISI-542 PO ×2 (08:35→12:43)
[2020-01-08] MEDS ORDERED: AMBI5TAB PO ×2 (08:35→12:43)
[2020-01-08] MEDS ORDERED: NICO21PAT TD ×2 (08:35→12:43)
== END 2020-01-08 13:07 | disposition home or self-care (01) | DRG 751 ==
LOC: M ED 11:33 → M ED INP 19:03 → M PSY 01-01 01:19
PROVIDERS: ADMIT Psychiatry & Neurology Addiction Medicine; ATTEND Psychiatry & Neurology Addiction Medicine
DX: F33.2 Major depressive disorder, recurrent severe without psychotic features (principal); I10 Essential (primary) hypertension; R45.851 Suicidal ideations; Z79.899 Other long term (current) drug therapy; F17.200 Nicotine dependence, unspecified, uncomplicated